=== PATIENT | male | born 1980 | race Caucasian/White ===

== ENCOUNTER 2021-06-04 08:34 | Outpatient (REF) | payer OTHER, SELFPAY ==
[2021-06-04 10:13] LABS: MANUAL DIFF FLAG NO
[2021-06-04 10:18] LABS: Basophils Percent Auto 0.6 % (0-2); Eosinophils Absolute Auto 0.1 X10*3/uL (0.0-0.4); Eosinophils Percent Auto 1.3 % (0-4); Hematocrit 40.7 % (42-52); Hemoglobin 13.6 g/dl (14.0-18.0); Imm Gran Abs Auto 0.01 X10*3/uL (0.00-0.03); Imm Gran Pct Auto 0.2 % (0.0-0.4); Lymphocytes Absolute Auto 1.5 X10*3/uL (1.2-4.9); Lymphocytes Percent Auto 32.8 % (20-40); Mean Corpuscular HGB Conc 33.4 g/dl (31.0-36.0); Mean Corpuscular Hemoglobin 29.2 pg (27.0-33.0); Mean Corpuscular Volume 87.3 fL (80-98); Mean Platelet Volume 9.6 fL (9.4-12.4); Monocytes Absolute Auto 0.4 X10*3/uL (0.1-1.2); Monocytes Percent Auto 9.2 % (2-11); Neutrophils Absolute Auto 2.6 X10*3/uL (2.0-8.3); Neutrophils Percent Auto 55.9 % (45-73); Platelet Count 216 X10*3/uL (160-400); Red Blood Count 4.66 X10*6/uL (4.60-5.80); Red Cell Distribution Width 12.7 % (11.0-16.0); White Blood Count 4.7 X10*3/uL (4.8-10.8)
[2021-06-04 10:31] LABS: Appearance Urine CLEAR; Color Urine YELLOW; Glucose Urine UA NEG (NEG); Leukocyte Esterase Urine NEG (NEG); Nitrite Urine NEG (NEG); Specific Gravity - Urine 1.025 (1.005-1.025); Urine Blood NEG (NEG); Urine Ketones NEG (NEG); Urine Protein NEG (NEG-TRACE)
[2021-06-04 10:38] LABS: Alanine Aminotransferase 28 U/L (0-40); Albumin Level 4.4 g/dL (3.5-5.0); Alkaline Phosphatase 53 U/L (39-117); Anion Gap 10 (12-20); Aspartate Amino Transferase 13 U/L (5-37); Blood Urea Nitrogen 16 mg/dL (9-16); Calcium 9.5 mg/dL (8.4-10.2); Carbon Dioxide 30 mmol/L (22-29); Chloride 104 mmol/L (96-108); Cholesterol 212 mg/dL; Estimated Glomerular Filt Rate > 60; Glucose Fasting 98 mg/dL (60-99); HDL Cholesterol 44 mg/dL; LDL Cholesterol Calculated 142 mg/dl; Lipase 17 U/L (8-78); Potassium 4.6 mmol/L (3.3-5.1); Sodium 139 mmol/L (135-145); Total Protein 6.6 g/dL (6.5-8.0); Triglycerides 132 mg/dL
== END 2021-06-04 08:35 | disposition home or self-care (01) ==
LOC: HO.10HDL 08:34
PROVIDERS: Visit Provider Internal Medicine
DX: E78.00 Pure hypercholesterolemia, unspecified (principal); R10.9 Unspecified abdominal pain
CPT/HCPCS: 36415; 80053; 80061; 81003; 83690; 85025

== ENCOUNTER 2021-06-15 15:07 | Outpatient (REF) | payer OTHER, SELFPAY ==
--- NOTE | ~2021-06-15 | XR_ITS ---
EXAMINATION: XR ELBOW, RIGHT CLINICAL INFORMATION: Pain COMPARISON: None TECHNIQUE: AP, lateral, and oblique views of the right elbow. FINDINGS: The bones and soft tissues are normal. No fracture or joint effusion. Alignment is anatomic. Joint spaces are maintained. XR/XR elbow RT min 3V IMPRESSION: Normal right elbow.
== END 2021-06-15 15:08 | disposition home or self-care (01) ==
LOC: HO.XRAY 15:07
PROVIDERS: PCP Internal Medicine; Visit Provider Internal Medicine
DX: M25.521 Pain in right elbow (principal); Z91.81 History of falling
CPT/HCPCS: 73080

== ENCOUNTER 2021-11-20 07:58 | Outpatient (REF) | payer OTHER, SELFPAY ==
[2021-11-20 09:00] LABS: Cholesterol 201 mg/dL; HDL Cholesterol 39 mg/dL; LDL Cholesterol Calculated 132 mg/dl; Triglycerides 150 mg/dL
== END 2021-11-20 07:59 | disposition home or self-care (01) ==
LOC: HO.LAB 07:58
PROVIDERS: PCP Internal Medicine; Visit Provider Internal Medicine
DX: E78.00 Pure hypercholesterolemia, unspecified (principal)
CPT/HCPCS: 36415; 80061

== ENCOUNTER 2023-10-06 06:42 | Outpatient (REF) | payer OTHER, SELFPAY ==
[2023-10-06 06:57] LABS: MANUAL DIFF FLAG NO
[2023-10-06 07:08] LABS: Basophils Percent Auto 0.8 % (0-2); Eosinophils Absolute Auto 0.1 X10*3/uL (0.0-0.4); Eosinophils Percent Auto 2.7 % (0-4); Hemoglobin 13.8 g/dl (14.0-18.0); Imm Gran Abs Auto 0.01 X10*3/uL (0.00-0.03); Imm Gran Pct Auto 0.2 % (0.0-0.4); Lymphocytes Absolute Auto 2.1 X10*3/uL (1.2-4.9); Lymphocytes Percent Auto 40.7 % (20-40); Mean Corpuscular HGB Conc 33.7 g/dl (31.0-36.0); Mean Corpuscular Hemoglobin 29.2 pg (27.0-33.0); Mean Corpuscular Volume 86.9 fL (80.0-98.0); Mean Platelet Volume 9.3 fL (9.4-12.4); Monocytes Absolute Auto 0.4 X10*3/uL (0.1-1.2); Monocytes Percent Auto 7.7 % (2-11); Neutrophils Absolute Auto 2.5 x10*3/uL (2.0-8.3); Neutrophils Percent Auto 47.9 % (45-73); Platelet Count 224 X10*3/uL (160-400); Red Blood Count 4.72 X10*6/uL (4.60-5.80); Red Cell Distribution Width 12.4 % (11.0-16.0); White Blood Count 5.2 X10*3/uL (4.8-10.8)
[2023-10-06 07:19] LABS: Alanine Aminotransferase 24 U/L (0-40); Albumin Level 4.1 g/dL (3.5-5.0); Alkaline Phosphatase 57 U/L (39-117); Anion Gap 9 (12-20); Aspartate Amino Transferase 14 U/L (5-37); Bilirubin Total 0.3 mg/dL (0.0-1.0); Blood Urea Nitrogen 14 mg/dL (9-16); C Reactive Protein < 0.10 mg/dL (< or = 0.50); Carbon Dioxide 28 mmol/L (22-29); Chloride 109 mmol/L (96-108); Cholesterol 185 mg/dL (<200); Estimated Glomerular Filt Rate > 60; Glucose Fasting 104 mg/dL (60-99); HDL Cholesterol 40 mg/dL (>40); LDL Cholesterol Calculated 121 mg/dL (<100); Potassium 4.3 mmol/L (3.3-5.1); Sodium 142 mmol/L (135-145); Total Protein 6.7 g/dL (6.5-8.0); Triglycerides 123 mg/dL (<150)
[2023-10-06 07:53] LABS: Erythrocyte Sedimentation Rate 4 MM/HR (0-15)
== END 2023-10-06 06:43 | disposition home or self-care (01) ==
LOC: HO.LAB 06:42
PROVIDERS: PCP Internal Medicine; Visit Provider Internal Medicine
DX: R42 Dizziness and giddiness (principal); E78.00 Pure hypercholesterolemia, unspecified
CPT/HCPCS: 36415; 80053; 80061; 85025; 85652; 86140

== ENCOUNTER 2024-12-12 16:02 | Outpatient (AMB) | payer OTHER, SELFPAY ==
--- NOTE | 2024-12-12 16:18 | A.OFFPC_ITS ---
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 Pain in plantar right foot at distal foot, base of the toes. Hurts intermittently through the day, at night, especially in the morning during first few steps. No pain in the heel Patient requests referral to urology for consideration of vasectomy ROS see HPI PHYSICAL EXAM: GENERAL: Alert and oriented x 3. NAD EYES: EOMI. Anicteric. HENT: Moist mucous membranes. No scleral icterus. No cervical lymphadenopathy. LUNGS: Clear to auscultation bilaterally. CARDIOVASCULAR: Regular rate and rhythm. No murmur. No JVD. ABDOMEN: Soft, non-tender +bs EXTREMITIES: No visible gross changes right foot, from SKIN: No rashes or lesions. Warm. NEUROLOGIC: No focal neurological deficits. CN II-XII grossly intact PSYCHIATRIC: Cooperative. Appropriate mood and affect [facility] Family History Mother No problems noted. Father No problems noted. Social History Housing: House Patient Tobacco Use Status: Never used Tobacco e-Cigarette/Vaping Use: Never Used service: No Current occupational status: employed Cognitive needs: No Hearing needs: No Vision needs: No Questionnaire PHQ-9 Over the last 2 weeks, how often have you been bothered by any of the following problems? 1. Little interest or pleasure in doing things: not at all 2. Feeling down, depressed, or hopeless: not at all 3. Trouble falling or staying asleep, or sleeping too much: not at all 4. Feeling tired or having little energy: not at all 5. Poor appetite or overeating: not at all 6. Feeling bad about yourself - or that you are a failure or have let yourself or your family down: not at all 7. Trouble concentrating on things, such as reading the newspaper or watching television: not at all 8. Moving or speaking so slowly that other people could have noticed. Or the opposite - being so fidgety or restless that you have been moving around a lot more than usual: not at all 9. Thoughts that you would be better off or of hurting yourself in some way: not at all Total score: 0 Depression Screening Interpretation: Negative Depression Screening Done: Yes 44127 - PHQ-9 Billing: Yes Source: Developed by Drs. George Crandall, Kayla Ac, Matt Cho and colleagues, with an educational óscar from [employer]. Thrive Questionnaire Date Thrive assessed: 12/12/24 I am a: Patient Within the past 12 months, did the food you bought not last and you didn't have the money to get more?: Never true Within the past 12 months, did you worry whether your food would run out before you got money to buy more?: Never true Do you have trouble paying for medicines?: No Do you have trouble getting transportation to medical appointments?: No Do you have trouble paying your heating and electricity bill?: No Do you have trouble taking care of your child, family member or friend?: No Do you have trouble with day-to-day activities such as bathing, preparing meals, shopping, managing finances, etc.?: No Are you currently unemployed and looking for a job?: No Are you interested in more education?: No THRIVE Score: 0 AUDIT C Alcohol Use Questionnaire (AUDIT-C) 1. How often do you have a drink containing alcohol?: Monthly or less 2. How many drinks containing alcohol do you have on a typical day when you are drinking?: 1 or 2 3. How often do you have six or more drinks on one occasion?: Less than monthly Total Score: 2 IRENE-7 AMB Questionnaire IRENE-7 Date IRENE - 7 assessed: 12/12/24 Feeling nervous, anxious, or on edge: 0 = Not at all Not being able to stop or control worryin = Not at all Worrying too much about different things: 0 = Not at all Trouble relaxin = Not at all Being so restless that it is hard to sit still: 0 = Not at all Becoming easily annoyed or irritable: 0 = Not at all Feeling afraid as if something awful might happen: 0 = Not at all Total IRENE-7 score (0-4 normal; 5-9 mild; 10-14 moderate; 15-21 severe): 0 Source: Developed by Drs. George Crandall, Kayla Ac, Matt Cho and colleagues, with an educational óscar from [employer]. Physical exam (Primary Care) Vital Signs: Last Vital Signs Temp 97.5 F 12/12/24 16:29 Pulse 86 12/12/24 16:29 BP 120/74 12/12/24 16:29 Pulse Ox 98 12/12/24 16:29 Oxygen Delivery Method Room Air 12/12/24 16:29 BMI result Body Mass Index 28.7 Tobacco/Smoking Status: Tobacco use Status Tobacco use date assessed 12/12/24 12/12/24 16:23 Patient Tobacco Use Status Never used Tobacco 12/12/24 16:23 e-Cigarette/Vaping Use Never Used 12/12/24 16:23 PHQ-9: PHQ-9 Score PHQ-9: Total score 0 12/12/24 16:33 Depression Screening Interpretation: Negative Thrive Assessment: Date of Thrive Assessment Date Thrive assessed 12/12/24 12/12/24 16:23 Coding Level of Care Code New Pt Level 4 (07281) Diagnoses Right foot pain M79.671 Vasectomy evaluation Z30. Additional Codes PHQ-9 - 46642 - PHQ-9 Billing: Yes ([id number]) Assessment & Plan Assessment & Plan (1) Right foot pain: Code(s): M79.671 - Pain in right foot Category: Medical Plan: Right foot pain x one year Voltaren sent, emla at night Referral to orthopedics (2) Vasectomy evaluation: Code(s): Z30.09 - Encounter for other general counseling and advice on contraception Category: Medical Plan: referral to urology Orders: Orders Comprehensive Met. Panel 12/12/24 D64.9 - Anemia, unspecified, E78.5 - Hyperlipidemia, unspecified, R73.09 - Other abnormal glucose, Z13.228 - Encounter for screening for other metabolic disorders Lipid Panel 12/12/24 D64.9 - Anemia, unspecified, E78.5 - Hyperlipidemia, unspecified, R73.09 - Other abnormal glucose, Z13.228 - Encounter for screening for other metabolic disorders Hemoglobin A1c 12/12/24 D64.9 - Anemia, unspecified, E78.5 - Hyperlipidemia, unspecified, R73.09 - Other abnormal glucose, Z13.228 - Encounter for screening for other metabolic disorders Complete Blood Count Auto Diff 12/12/24 D64.9 - Anemia, unspecified, E78.5 - Hyperlipidemia, unspecified, R73.09 - Other abnormal glucose, Z13.228 - Encounter for screening for other metabolic disorders Referrals Orthopedics Referral M79.671 - Pain in right foot Urology Referral Z30.09 - Encounter for other general counseling and advice on contraception Medications: New diclofenac sodium 1% (Voltaren Arthritis Pain) apply to single knee, ankle, foot; for foot includes sole/toes/top of foot 4 grams topical QID 100 grams 3RF lidocaine-prilocaine 2.5-2.5 % 1 appl topical BID PRN 30 grams 3RF foot pain
[2024-12-12 16:29] VITALS: BP 120/74; PULSE 86; TEMP 36.4; O2SAT 98; BMI 28.7
== END 2024-12-12 16:51 | disposition home or self-care (01) ==
LOC: HO.HMCHD 16:03
PROVIDERS: PCP Internal Medicine; Visit Provider Internal Medicine
DX: M79.671 Pain in right foot (principal); Z30.09 Encounter for other general counseling and advice on contraception

== ENCOUNTER → 2024-12-12 16:02 | Outpatient (BNVA) | payer OTHER, SELFPAY | PROVIDERS: PCP Internal Medicine; Visit Provider Internal Medicine | DX: K21.9 Gastro-esophageal reflux disease without esophagitis (principal); M19.90 Unspecified osteoarthritis, unspecified site; M79.671 Pain in right foot; D64.9 Anemia, unspecified; E78.5 Hyperlipidemia, unspecified; R73.09 Other abnormal glucose; Z30.09 Encounter for other general counseling and advice on contraception | CPT/HCPCS: 96127; 99202 ==

== ENCOUNTER 2025-05-20 09:24 | Outpatient (AMB) | payer OTHER, SELFPAY ==
--- NOTE | 2025-05-20 09:27 | A.OFFPC_ITS ---
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 The patient reports that he previously requested referrals to urology and orthopedics; however, he did not receive a call for the urology appointment due to transitioning doctors and insurance changes. An x-ray for the foot was ordered but not completed. The patient reports tenderness on his foot interfering with daily activities, particularly in the morning, when he feels a sensation of his finger pulling down, leading to numbness and popping upon placing weight on the foot. These symptoms alleviate throughout the day but may exacerbate at night, depending on sleeping position. Additionally, a concern for blood work results historically suggested hypercholesterolemia, which the patient is keen on monitoring, along with other baseline blood markers. There is also an interest in having a re-evaluation of his LDL, which was previously 121 mg/dL, indicating potential risk but not extreme levels. Blood glucose from past labs returned slightly elevated, warranting monitoring. The patient does not report any significant nausea, vomiting, chest pain, shortness of breath, gastrointestinal issues, or other joint pain, apart from those previously mentioned. Reports a sporadic drinking habit and rare smoking, only when socially prompted. Medical History: - Hypercholesterolemia - Elevated blood glucose (potential hist ory of pre-diabetes) - Essential Hypertension Family History: - Grandmother from heart failure - Aunts with heart issues - Grandmother from lung cancer [facility] Family History Mother No problems noted. Father No problems noted. Social History Housing: House Patient Tobacco Use Status: Never used Tobacco Tobacco use type: Cigarette e-Cigarette/Vaping Use: Never Used service: No Current occupational status: employed Cognitive needs: No Hearing needs: No Vision needs: No Questionnaire Thrive Questionnaire Date Thrive assessed: 05/20/25 I am a: Patient What is your living situation today?: I have a steady place to live Within the past 12 months, did the food you bought not last and you didn't have the money to get more?: Never true Within the past 12 months, did you worry whether your food would run out before you got money to buy more?: Never true Do you have trouble paying for medicines?: No Do you have trouble getting transportation to medical appointments?: No Do you have trouble paying your heating and electricity bill?: No Do you have trouble taking care of your child, family member or friend?: No Do you have trouble with day-to-day activities such as bathing, preparing meals, shopping, managing finances, etc.?: No Are you currently unemployed and looking for a job?: No Are you interested in more education?: No THRIVE Score: 0 AUDIT C Alcohol Use Questionnaire (AUDIT-C) 1. How often do you have a drink containing alcohol?: Monthly or less 2. How many drinks containing alcohol do you have on a typical day when you are drinking?: 1 or 2 Total Score: 1 Score Reviewed/Action Taken: Yes IRENE-7 AMB Questionnaire IRENE-7 Date IRENE - 7 assessed: 12/12/24 Source: Developed by Drs. George Crandall, Kayla Ac, Matt Cho and colleagues, with an educational óscar from [employer] Review of Systems Const Details: - Cardiovascular: Denies chest pain, shortness of breath - Respiratory: Denies any related symptoms - Gastrointestinal: Denies nausea, vomiting, diarrhea - Musculoskeletal: Reports foot tenderness and relief from symptoms during the day - Neurological: Reports morning finger pulling sensation - Genitourinary: Denies symptoms - Psychiatric: Denies psychological symptoms - General: Denies weight gain or significant changes to general health Physical exam (Primary Care) Tobacco/Smoking Status: Tobacco use Status Tobacco use date assessed 12/12/24 05/20/25 09:28 Patient Tobacco Use Status Never used Tobacco 05/20/25 09:28 e-Cigarette/Vaping Use Never Used 05/20/25 09:28 Thrive Assessment: Date of Thrive Assessment Date Thrive assessed 12/12/24 05/20/25 09:28 Const Other: General: Alert and oriented, Well nourished, No acute distress. Eye: Pupils are equal, round and reactive to light, Intact accommodation, Extraocular movements are intact, Normal conjunctiva, Vision unchanged. HENT: Normocephalic, Atraumatic, Tympanic membranes are clear, Normal hearing, Oral mucosa is moist, No pharyngeal erythema, Ear canals patent. Respiratory: Lungs CTA bilaterally, No wheeze, Respirations are non-labored. Cardiovascular: Regular rate, Regular rhythm, S1 auscultated, S2 auscultated, No murmur, Good pulses equal in all extremities, Normal peripheral perfusion, No edema. Gastrointestinal: Soft, Non-tender, Non-distended, Normal bowel sounds, No organomegaly. Musculoskeletal: Normal range of motion, Normal strength, No tenderness, No swelling, No deformity, Normal gait. Integumentary: Warm, Dry, [place], Intact. Neurologic: Alert, Oriented, Normal sensory, Normal motor function, No focal defects, Cranial Nerves II-XII are grossly intact, Normal deep tendon reflexes. Psychiatric: Cooperative, Appropriate mood & affect, Normal judgment. Coding Level of Care Code Est Pt Level 4 (16687) Diagnoses Hyperlipidemia E78.5 Right foot pain M79.671 Vasectomy evaluation Z30. Assessment & Plan Assessment & Plan (1) Hyperlipidemia: Comment: - Perform laboratory tests to evaluate cholesterol levels. - Lifestyle modifications recommended for cholesterol management. - Consider future pharmacological treatments if lifestyle modifications don't suffice. Code(s): E78.5 - Hyperlipidemia, unspecified Category: Medical Plan: - Dietery modifications - Order Lipid Panel (2) Right foot pain: Comment: - Reorder foot x-ray. - Recommend referral to orthopedics for comprehensive evaluation. Code(s): M79.671 - Pain in right foot Category: Medical (3) Vasectomy evaluation: Comment: - Referred to Urology Code(s): Z30.09 - Encounter for other general counseling and advice on contraception Category: Medical Plan Hypertension: - Encourage lifestyle changes to manage blood pressure. Monitor readings. I discussed with the patient the need to follow up with pending referrals, with an emphasis on continuing with lifestyle modifications to help manage hypertension and hypercholesterolemia. The necessity of retrieving foot x-rays was reinforced, as past attempts have not been completed. The patient was informed about the blood work panel which will give a baseline at this stage and an agreed-upon follow-up was suggested to review those results. Vaccine titers were discussed due to lack of documentation needed for work purposes. The patient was advised to maintain an active lifestyle, as inactivity contributes to blood pressure issues. We discussed potential needs for pharmacological intervention based on future test results, and anticipatory guidance for conditions with increased risk due to family history. I outlined potential next steps if laboratory values suggest further interventions are necessary. Orders: Orders Complete Blood Count Auto Diff Today E78.5 - Hyperlipidemia, unspecified Hemoglobin A1c Today E78.5 - Hyperlipidemia, unspecified Hepatitis A,B,C Profile Today E78.5 - Hyperlipidemia, unspecified TSH reflex Free T4 Today E78.5 - Hyperlipidemia, unspecified Comprehensive Met. Panel Today E78.5 - Hyperlipidemia, unspecified HIV Ab/Ag Today E78.5 - Hyperlipidemia, unspecified Lipid Panel Today E78.5 - Hyperlipidemia, unspecified Syphilis Screen Today E78.5 - Hyperlipidemia, unspecified Vitamin D 25-OH Total Today E78.5 - Hyperlipidemia, unspecified XR foot RT min 3V Today M79.671 - Pain in right foot MMR IgG Measles Mumps Rubella Today E78.5 - Hyperlipidemia, unspecified Referrals Orthopedics Referral M79.671 - Pain in right foot Urology Referral Z30.09 - Encounter for other general counseling and advice on contraception Scribe Plan - Not visible on output: - Follow up on referrals with insurance - Follow through with the lab work ordered in the conversation - Make lifestyle changes to help manage blood pressure and cholesterol - Attend the follow-up appointment to discuss lab results, especially for blood glucose and cholesterol levels - Adhere to a healthier diet low in salt and increased physical activity - Schedule an appointment next week for the vaccine titer check - Continue monitoring any changes in symptoms, especially foot and finger pain - Avoid high sodium foods and reduce alcohol consumption - Return to the gym for consistent exercise
[2025-05-20 09:41] VITALS: BP 142/64; PULSE 8; RESP 16; TEMP 36.4; O2SAT 97; BMI 28.8
== END 2025-05-20 09:57 | disposition home or self-care (01) ==
PROVIDERS: PCP Student in an Organized Health Care Education/Training Program; Visit Provider Student in an Organized Health Care Education/Training Program
DX: E78.5 Hyperlipidemia, unspecified (principal); M79.671 Pain in right foot; Z30.09 Encounter for other general counseling and advice on contraception

== ENCOUNTER → 2025-05-20 09:24 | Outpatient (BNVA) | payer OTHER, SELFPAY | PROVIDERS: PCP Internal Medicine; Visit Provider Student in an Organized Health Care Education/Training Program | DX: E78.5 Hyperlipidemia, unspecified (principal); M79.671 Pain in right foot; I10 Essential (primary) hypertension; Z30.09 Encounter for other general counseling and advice on contraception | CPT/HCPCS: 99212 ==

== ENCOUNTER 2025-05-22 08:19 | Outpatient (REF) | payer OTHER, SELFPAY ==
[2025-05-22 10:36] LABS: MANUAL DIFF FLAG NO
[2025-05-22 10:40] LABS: Hematocrit 41.7 % (42.0-52.0); Hemoglobin 14.0 g/dl (14.0-18.0); Imm Gran Abs Auto 0.02 X10*3/uL (0.00-0.03); Imm Gran Pct Auto 0.4 % (0.0-0.4); Lymphocytes Absolute Auto 2.1 X10*3/uL (1.2-4.9); Mean Corpuscular HGB Conc 33.6 g/dl (31.0-36.0); Mean Corpuscular Hemoglobin 29.0 pg (27.0-33.0); Mean Corpuscular Volume 86.5 fL (80.0-98.0); NRBC Abs Auto 0.000 X10*3/uL (0.0-0.012); NRBC Pct Auto 0.0 /100WBC (0.0-0.2); Platelet Count 215 X10*3/uL (160-400); Red Blood Count 4.82 X10*6/uL (4.60-5.80); White Blood Count 5.5 X10*3/uL (4.8-10.8)
[2025-05-22 10:51] LABS: Hemoglobin A1C 142.9366 umol/L; Total Hemoglobin (HGBA1C) 3616.8152 umol/L
[2025-05-22 11:13] LABS: Alanine Aminotransferase 34 U/L (0-40); Albumin Level 4.7 g/dL (3.5-5.0); Alkaline Phosphatase 54 U/L (39-117); Anion Gap 11 (12-20); Aspartate Amino Transferase 22 U/L (5-37); Blood Urea Nitrogen 18 mg/dL (9-16); Calcium 9.3 mg/dL (8.4-10.2); Carbon Dioxide 29 mmol/L (22-29); Chloride 105 mmol/L (96-108); Cholesterol 219 mg/dL (<200); Estimated Glomerular Filt Rate > 60; HDL Cholesterol 40 mg/dL (>40); Potassium 4.1 mmol/L (3.3-5.1); Sodium 141 mmol/L (135-145); Total Protein 7.1 g/dL (6.5-8.0); Triglycerides 176 mg/dL (<150)
[2025-05-22 11:18] LABS: HBS Num1 5.53 mIU/mL (0-7.99); HBc Num1 0.04 S/CO (0.00-0.79); HBsAGNum1 0.36 S/CO (0.00-0.99); HIV Num 1 0.04 S/CO (0.00-0.99); Hepatitis A Antibody IgM 0.18 Index (0-0.79); Hepatitis B Surface Antigen Negative (Negative); ~HepC Num1 0.09 S/CO (0.00-0.79); ~Hepatitis A Antibody IgM Nonreactive (Nonreactive); ~Hepatitis B Surface Antibody NONREACTIVE (Nonreactive); ~Hepatitis C Antibody Nonreactive (Nonreactive)
[2025-05-22 11:19] LABS: Syphilis Screen Nonreactive (Nonreactive)
== END 2025-05-22 08:20 | disposition home or self-care (01) ==
LOC: HO.10HDL 08:19
PROVIDERS: Visit Provider Student in an Organized Health Care Education/Training Program
DX: Z11.3 Encounter for screening for infections with a predominantly sexual mode of transmission (principal); Z11.4 Encounter for screening for human immunodeficiency virus [HIV]; E78.5 Hyperlipidemia, unspecified; Z11.59 Encounter for screening for other viral diseases
CPT/HCPCS: 36415; 80053; 80061; 82306; 83036; 84443; 85025; 86704; 86706; 86709; 86780; 86803; 87340; 87389

== ENCOUNTER 2025-05-27 08:28 | Outpatient (REF) | payer OTHER, SELFPAY ==
[2025-05-28 19:52] LABS: Rubeola IgG (Measles) 38.20 AU/mL
== END 2025-05-27 08:29 | disposition home or self-care (01) ==
LOC: HO.10HDL 08:28
PROVIDERS: Visit Provider Student in an Organized Health Care Education/Training Program
DX: E78.5 Hyperlipidemia, unspecified (principal)
CPT/HCPCS: 36415; 86735; 86762; 86765

== ENCOUNTER 2025-06-02 06:01 | Outpatient (REF) | payer OTHER, SELFPAY ==
--- NOTE | ~2025-06-02 | XR_ITS ---
EXAMINATION: XR FOOT 3 OR MORE VIEWS RIGHT HISTORY: M79.671 - Pain in right foot COMPARISON: There are no prior studies available for comparison. FINDINGS: Three views of the right foot are submitted. Osseous mineralization is normal. There is no fracture or dislocation. The joint spaces are preserved. The soft tissues are unremarkable. XR/XR foot RT min 3V IMPRESSION: Unremarkable examination of the right foot. Electronically signed by: George Sky MD 06/02/2025 08:07 AM EDT
== END 2025-06-02 06:02 | disposition home or self-care (01) ==
LOC: HO.XRAY 06:01
PROVIDERS: PCP Student in an Organized Health Care Education/Training Program; Visit Provider Student in an Organized Health Care Education/Training Program
DX: M79.671 Pain in right foot (principal); M77.41 Metatarsalgia, right foot; G57.81 Other specified mononeuropathies of right lower limb
CPT/HCPCS: 73630

== ENCOUNTER → 2025-06-02 06:05 | Outpatient (BNV) | payer OTHER, SELFPAY | PROVIDERS: PCP Student in an Organized Health Care Education/Training Program; Visit Provider Radiology Diagnostic Radiology | DX: M79.671 Pain in right foot (principal) | CPT/HCPCS: 73630 ==

== ENCOUNTER 2025-06-02 10:45 | Outpatient (AMB) | payer OTHER, SELFPAY ==
--- NOTE | 2025-06-02 10:52 | A.OFFVIS_ITS ---
Vital Signs 3 06/02/25 10:55 Height 5 ft 10 in Weight 198 lb BMI 28.4 Intake Visit Reasons: New Pt- right foot pain Intake Note: Alexander is a 44 year old male who presents today as a new patient for an evaluation of his right foot pain. He mentions the pain has been going on for about 2 years with no injury to the foot. Pain is located on the ball of his foot between the 3rd and 4h toe. Patient reports pain in the morning after first step but pain gets slightly better throughout the day Allergies No Known Allergies Allergy (Verified 06/02/25 10:55) Medication List - Last Reconciled 06/02/25 by Crystal Wolf DPM diclofenac sodium 1% (Voltaren Arthritis Pain) 4 grams topical QID lidocaine-prilocaine 2.5-2.5 % 1 appl topical BID PRN HPI Comments Details: The patient is a 44-year-old male with a past medical history as seen below presenting with right foot pain and a sensation of popping in-between the toes. He states the pain has been going on for approximately 2 years and denies any inciting injuries. He states he experiences a burning pain to the 3rd interspace plantarly. He states he notices contracture and flexion of the 3rd and 4th toes with some difficulty extending and releasing the toes upon contracture. The pain is most pronounced upon waking and taking the first step in the morning, with occasional burning sensations at night. He denies any heel pain. The discomfort is localized to the ball of the foot, with no heel pain reported. The patient describes a burning pain sudha to a be sting, with occasional locking of the third and fourth toes. There is no pain upon manipulation of the toes, but a popping sensation is noted. The patient underwent an x-ray, which showed no significant abnormalities except for a posterior calcaneal bone spur. He denies any other pedal concerns. He denies any current nausea, vomiting, fever, or chills. 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 Father No problems noted. Social History Housing: House Patient Tobacco Use Status: Never used Tobacco Tobacco use type: Cigarette e-Cigarette/Vaping Use: Never Used service: No Current occupational status: employed Cognitive needs: No Hearing needs: No Vision needs: No Review of Systems Const Details: - Musculoskeletal: Reports right foot pain, popping sensation, burning pain, and occasional locking of 3rd and 4th toes. Denies heel pain. All systems reviewed & are unremarkable except as noted in HPI and below Physical Exam Vital Signs: BMI result Body Mass Index 28.4 Extrem Other: Right lower extremity focused physical exam: Derm: Skin supple and turgor within normal limits. No open lesions abrasions or wounds noted. No hyperkeratotic lesions noted. No clinical signs of infection noted. Vascular: DP/PT pulses palpable. Capillary refill time less than 3 seconds. Temperature gradient warm to warm. Pedal hair present. No varicosities noted. No edema noted. Neuro: Protective sensation is grossly intact. Musculoskeletal: Squeeze test positive between third and fourth toes which elicited a pop sensation. Mild pain on palpation to the plantar aspect of the 3rd interspace in the area of the ball of the foot. No pain with range of motion of the forefoot. Range of motion of the hindfoot and ankle within normal limits. Mild crepitus noted to the 3rd interspace. Mildly antalgic gait unassisted. Ankle/foot/toe images: 2 1. Results Reviewed Results Reviewed: Ordered right foot MRI to be performed prior to next visit. Podiatry read of Right foot x-rays: Posterior calcaneal spur noted. No splaying of metatarsals noted. No acute fractures or dislocations noted. FINDINGS: Three views of the right foot are submitted. Osseous mineralization is normal. There is no fracture or dislocation. The joint spaces are preserved. The soft tissues are unremarkable. IMPRESSION: Unremarkable examination of the right foot. Assessment & Plan Assessment & Plan (1) Right foot pain: Comment: - Reorder foot x-ray. - Recommend referral to orthopedics for comprehensive evaluation. 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 We also reviewed the x-ray findings, which showed a posterior calcaneal bone spur, and I explained that it is not currently problematic. Ordered a right foot MRI to be performed prior to the next visit. 1. Mtz's Neuroma The patient is experiencing symptoms consistent with Mtz's Neuroma, including burning pain and a popping sensation between the third and fourth toes. Initial management includes the use of metatarsal pads (provided patient with metatarsal pads) to alleviate pressure on the affected nerve. 2. Bone Spur A bone spur was identified on the x-ray, but it is not currently causing pain or requiring intervention. Advised patient to continue wearing supportive shoe gear and avoid barefoot walking. Discussed with the patient need for insoles. Advised patient to utilize toe socks at night to prevent toe squeezing/compression. Advised patient to take ibuprofen or Tylenol for pain management as needed. Patient is to return to the office in 2 weeks for further re-evaluation. 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
[2025-06-02 10:55] VITALS: BMI 28.4
== END 2025-06-02 11:24 | disposition home or self-care (01) ==
LOC: HO.HPODS 10:46
PROVIDERS: PCP Student in an Organized Health Care Education/Training Program; Visit Provider Student in an Organized Health Care Education/Training Program
DX: M79.671 Pain in right foot (principal); G57.81 Other specified mononeuropathies of right lower limb; M77.41 Metatarsalgia, right foot
CPT/HCPCS: 99204

== ENCOUNTER 2025-06-17 08:28 | Outpatient (REF) | payer OTHER, SELFPAY ==
--- NOTE | ~2025-06-17 | MR_ITS ---
EXAMINATION: MR FOOT WITHOUT AND WITH CONTRAST, RIGHT CLINICAL INFORMATION: Foot numbness plantar to the third and fourth digits, popping, intermittent pain, feels like a lump in the region walking, chronic COMPARISON: X-ray 06/02/2025 TECHNIQUE: MRI of the right foot was performed before and after the intravenous administration of 9 mL Gadavist on a high-field scanner. FINDINGS: Lisfranc ligament: Intact Soft tissues/Mtz's Neuroma: There is a mass in the third web space that measures 13 x 5 x 13 mm (AP by transverse by CC). On T1 imaging and is isodense to skeletal muscle. On fluid multisequence, it is heterogeneously intermediate signal. After contrast, it demonstrates mild enhancement and is most consistent with Mtz's neuroma. There is a small amount of fluid in the adjacent intermetatarsal bursa. There is no muscle edema, atrophy, or fatty streaking. Metatarsophalangeal (MTP) joint and sesamoids of the great toe: Joint capsular structures and plantar plate complex is intact. There is no joint effusion. Lesser MTP joints & Plantar plates: Joint capsular structures and plantar plate complex is intact. There is no joint effusion. Bones/Marrow: Bone marrow signal is physiologic. MR/MR foot RT wo/w con IMPRESSION: Suspected Mtz's neuroma in the third web space measuring 13 x 5 x13 mm. Electronically signed by: Denzel Thomas MD 06/17/2025 09:42 AM EDT
== END 2025-06-17 08:29 | disposition home or self-care (01) ==
LOC: HO.MRI 08:28
PROVIDERS: PCP Student in an Organized Health Care Education/Training Program; Visit Provider Student in an Organized Health Care Education/Training Program
DX: M79.671 Pain in right foot (principal); M77.41 Metatarsalgia, right foot; M86.9 Osteomyelitis, unspecified
CPT/HCPCS: 73720; A9585

== ENCOUNTER → 2025-06-17 08:31 | Outpatient (BNV) | payer OTHER, SELFPAY | PROVIDERS: PCP Student in an Organized Health Care Education/Training Program; Visit Provider Radiology Diagnostic Radiology | DX: M79.671 Pain in right foot (principal) | CPT/HCPCS: 73720 ==

== ENCOUNTER 2025-07-01 08:57 | Outpatient (AMB) | payer OTHER, SELFPAY ==
--- NOTE | 2025-07-01 09:04 | A.OFFVIS_ITS ---
Vital Signs 07/01/25 09:06 Height 5 ft 10 in Weight 198 lb BMI 28.4 Intake Visit Reasons: OV- right foot MRI review Intake Note: Alexander Is a 44 year old male who presents today for a follow up of his right foot for an MRI review. At his last visit he was given metatarsal pads to alleviate pressure on the affected nerve. Bone spur was identified but is asymptomatic and required no treatment. Patient report his foot since his last visit has remained the same however he feels the metatarsal pad has helped with his driving. MRI done at [facility] [place] 06[place]17[place]25 Allergies No Known Allergies Allergy (Verified 07/01/25 09:06) HPI Comments Details: The patient is a 44-year-old male presenting for follow-up for right foot metatarsalgia and Mtz's Neuroma. The patient reports numbness in the foot when driving for long periods and discomfort after standing or playing sports for extended durations. The symptoms include a popping sensation in the morning and discomfort at the end of the day, with no new sharp pain reported. The patient has been using the metatarsal pads, which have provided some relief, especially during driving. The patient has not been using Voltaren gel regularly. He denies any new inciting injuries. He denies any other pedal concerns. 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 Father No problems noted. Social History Housing: House Patient Tobacco Use Status: Never used Tobacco Tobacco use type: Cigarette e-Cigarette/Vaping Use: Never Used service: No Current occupational status: employed Cognitive needs: No Hearing needs: No Vision needs: No Review of Systems Const Details: - Musculoskeletal: Mtz's neuroma to the right foot. All systems reviewed & are unremarkable except as noted in HPI and below Physical Exam Vital Signs: BMI result Body Mass Index 28.4 Extrem Other: Right lower extremity focused physical exam: Derm: Skin supple and turgor within normal limits. No open lesions abrasions or wounds noted. No hyperkeratotic lesions noted. No clinical signs of infection noted. No ecchymosis or discoloration noted. Vascular: DP/PT pulses palpable. Capillary refill time less than 3 seconds. Temperature gradient warm to warm. Pedal hair present. No varicosities noted. No edema noted. Neuro: Protective sensation is grossly intact. Musculoskeletal: Squeeze test positive between third and fourth toes which elicited a popping sensation. Mild pain on palpation to the plantar aspect of the 3rd interspace in the area of the ball of the foot. No pain with range of motion of the forefoot. Range of motion of the hindfoot and ankle within normal limits. Mild crepitus noted to the 3rd interspace. Mildly antalgic gait u nassisted. No splaying of toes noted. Office Procedures AMB Joint Injection/Aspir Pod Joint Injection/Aspiration Podiatry: Procedure: Right foot neuroma cortisone injection: Cleansed the right foot with an alcohol swab in the area of between the 3rd and 4th metatarsal heads where the neuroma is located. Next injected 1 cc of lidocaine plain, 1 cc of dexamethasone, and 0.5 cc of triamcinolone in the area of the neuroma with no incidents. A band-aid was applied to the area. Provided patient with after care instructions. 80097 RT - Mtz's Neuroma Injection RT Procedure code (CPT) selection complete Office Meds triamcinolone acetonide 40 mg/mL suspension for injection Performing Provider: Crystal Wolf DPM Performing Location: [facility] Administered by: Crystal Wolf DPM on 07/01/25 09:31 Dose Route Admin Location Dispensed Lot Number Expiration Date [facility] It Coordinator 20 mg intra-articular 1 mL [id number] [employer]N [employer] Total Dispensed Waste 1 mL 50 % dexamethasone sodium phosphate 4 mg/mL injection solution Performing Provider: Crystal Wolf DPM Performing Location: [facility] Administered by: Crystal Wolf DPM on 07/01/25 09:31 Dose Route Admin Location Dispensed Lot Number Expiration Date [facility] It Coordinator 4 mg intra-articular 1 mL [id number] MYL AN INSTITUTI Total Dispensed Waste 1 mL 0 % lidocaine HCl 10 mg/mL (1 %) injection solution Performing Provider: Crystal Wolf DPM Performing Location: [facility] Administered by: Crystal Wolf DPM on 07/01/25 09:31 Dose Route Admin Location Dispensed Lot Number Expiration Date [facility] It Coordinator 1 mL intra-articular 1 mL [id number] Total Dispensed Waste 1 mL 0 % Results Reviewed Results Reviewed: Podiatry Read of right foot MRI: Mtz's neuroma noted to the interdigital space between the 3rd and 4th metatarsal heads. No other gross abnormalities noted. Right foot MRI (06/17/25): FINDINGS: Lisfranc ligament: Intact Soft tissues/Mtz's Neuroma: There is a mass in the third web space that measures 13 x 5 x 13 mm (AP by transverse by CC). On T1 imaging and is isodense to skeletal muscle. On fluid multisequence, it is heterogeneously intermediate signal. After contrast, it demonstrates mild enhancement and is most consistent with Mtz's neuroma. There is a small amount of fluid in the adjacent intermetatarsal bursa. There is no muscle edema, atrophy, or fatty streaking. Metatarsophalangeal (MTP) joint and sesamoids of the great toe: Joint capsular structures and plantar plate complex is intact. There is no joint effusion. Lesser MTP joints & Plantar plates: Joint capsular structures and plantar plate complex is intact. There is no joint effusion. Bones/Marrow: Bone marrow signal is physiologic. IMPRESSION: Suspected Mtz's neuroma in the third web space measuring 13 x 5 x13 mm. Podiatry read of Right foot x-rays: Posterior calcaneal spur noted. No splaying of metatarsals noted. No acute fractures or dislocations noted. FINDINGS: Three views of the right foot are submitted. Osseous mineralization is normal. There is no fracture or dislocation. The joint spaces are preserved. The soft tissues are unremarkable. IMPRESSION: Unremarkable examination of the right foot. Assessment & Plan Assessment & Plan (1) Metatarsalgia, right foot: Code(s): M77.41 - Metatarsalgia, right foot Category: Medical (2) Right foot pain: Comment: - Reorder foot x-ray. - Recommend referral to orthopedics for comprehensive evaluation. 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 I discussed with the patient that the MRI confirmed a neuroma between the third and fourth toes of the right foot, which is causing the symptoms. We reviewed treatment options, including the use of metatarsal pads, cortisone injections, and the potential for surgical removal if conservative measures fail. I explained the risks and benefits of cortisone injections, including the need to limit them to three times a year to prevent tissue damage. The patient consented to proceed with the injection and was advised to avoid strenuous activities for a few days post-injection. - Administered a cortsone injection to reduce the size of the neuroma and alleviate symptoms. - Advised the patient to continue using metatarsal pads to relieve pressure on the affected area. Provided patient with metatarsal pads. - Advised patient to continue wearing supportive shoe gear and avoid barefoot walking. - Advised patient to wear inserts/insoles. - Advised patient to utilize toe socks at night to prevent toe squeezing/compression. - Advised patient to use Voltaren gel prn pain. - Discussed the possibility of surgical intervention if symptoms persist despite conservative management. RTC in 1 month for re-evaluation of symptoms. 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
[2025-07-01 09:06] VITALS: BMI 28.4
== END 2025-07-01 09:35 | disposition home or self-care (01) ==
LOC: HO.HPODS 08:58
PROVIDERS: PCP Student in an Organized Health Care Education/Training Program; Visit Provider Student in an Organized Health Care Education/Training Program
DX: M77.41 Metatarsalgia, right foot (principal); M79.671 Pain in right foot; G57.81 Other specified mononeuropathies of right lower limb
CPT/HCPCS: 64455; 99213

== ENCOUNTER → 2025-07-01 08:57 | Outpatient (BNVA) | payer OTHER, SELFPAY | PROVIDERS: PCP Student in an Organized Health Care Education/Training Program; Visit Provider Student in an Organized Health Care Education/Training Program | DX: G57.81 Other specified mononeuropathies of right lower limb (principal); M79.671 Pain in right foot; M77.41 Metatarsalgia, right foot | CPT/HCPCS: 64455; 99212; J1100; J2003; J3301 ==

== ENCOUNTER → 2025-08-12 08:11 | Outpatient (BNVA) | payer OTHER, SELFPAY | PROVIDERS: PCP Student in an Organized Health Care Education/Training Program; Visit Provider Nurse Practitioner Family | DX: R45.89 Other symptoms and signs involving emotional state (principal); Z30.09 Encounter for other general counseling and advice on contraception | CPT/HCPCS: 99202 ==

== ENCOUNTER 2025-08-12 09:46 | Outpatient (AMB) | payer OTHER, SELFPAY ==
--- NOTE | 2025-08-12 09:50 | A.OFFVIS_ITS ---
Intake Visit Reasons: Vasectomy Consult Intake Note: Patient is present for VASECTOMY CONSULT Urology Medication:NONE Antibiotic Allergy:NONE Blood Thinner:NONE Bumper And Painter Required: No Allergies No Known Allergies Allergy (Verified 08/12/25 11:20) Medication List - Last Reconciled 08/12/25 by LAKESHA Cuadra diclofenac sodium 1% (Voltaren Arthritis Pain) 4 grams topical QID lidocaine-prilocaine 2.5-2.5 % 1 appl topical BID PRN HPI Comments Details: Alexander is a very pleasant 45-year-old male patient of . He presents to the office today for - vasectomy evaluation Vasectomy evaluation The patient presents for vasectomy consultation.? 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 Does not recall exact procedural name. Patient education has been provided via [facility] video, via printed information, risks of failure, recovery time, bruising and potential pain syndrome have been stressed Discussion today focused on the presence of vasectomy and the risks, benefits and alternatives that are available. Vasectomy as intended as a permanent form of control. Printed information and literature was provided to the patient. Overall there is a one in 2500 failure rate. This can occur at any time after vasectomy. Risks were discussed highlighting hematoma, spermatocele, epididymal congestion, development of sperm antibodies, and development of chronic pain estimated between 1-5%. The procedure was reviewed in detail. Anatomical diagrams of the male genitalia were used to explain the location of the vas deferens. The vas deferens will be transected, the proximal end will be cauterized, a metal clip would be applied to separate the 2 vas deferens ends. It was explained the procedure will be done in the office and takes approximately 10-15 minutes. Less common problems that arise with vasectomy include hematoma, bleeding, allergic reaction to anesthetic, epididymal infection, epididymal congestion, scrotal discomfort, spermatic leak, spermatic granuloma and the possibility of antisperm antibodies. He understands these risks and wishes to proceed. Consent was signed at the office today. He also understands that it takes 12 weeks for sperm to fully clear the system. He will need to provide a semen sample at 12 weeks and if this is not clear a 2nd sample at 16 weeks. Medical clearance to stop using protection will only be provided if he satisfies published criteria for sperm clearance. 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 Father No problems noted. Social History Housing: House Patient Tobacco Use Status: Never used Tobacco Tobacco use type: Cigarette e-Cigarette/Vaping Use: Never Used service: No Current occupational status: employed Cognitive needs: No Hearing needs: No Vision needs: No Review of Systems Const All systems reviewed & are unremarkable except as noted in HPI and below Physical Exam Const General: cooperative, healthy appearing, comfortable, no acute distress, well developed, alert and awake Orientation/consciousness: patient oriented x3 Limitations: no limitations HEENT Head: Yes normal to inspection, Yes normocephalic and Yes atraumatic Ears: hearing grossly normal bilaterally Eyes General: appearance normal, both eyes and all related structures Neck Neck: Yes normal visual inspection and Yes trachea midline Chest Chest palpation & inspection: normal inspection of the chest Resp Effort & Inspection: normal respiratory effort and able to speak in complete sentences Cardio Rate: regular rate GI Inspection: Yes normal to inspection Other: Right-sided epididymal head cysts palpated during exam. General: Yes no CVA tenderness Back/Spine/Pelvis Back: no CVA tenderness Skin General skin exam: no rashes or lesions noted Neuro General: patient oriented x3 Extrem General: Yes normal to inspection Psych Appearance: grossly normal and well kempt Mental Status: mental status grossly normal Speech and movement: Normal speech and movement present and Clear speech present Affect: normal affect Attitude: cooperative Thought process: Normal thought process present Thought content: Normal thought content present Insight: Fair insight present (Psych) Judgement: Fair judgement present (Psych) Assessment & Plan Assessment & Plan (1) Anxiety about health: Code(s): R45.89 - Other symptoms and signs involving emotional state Category: Medical (2) Vasectomy evaluation: Comment: - Referred to Urology Code(s): Z30.09 - Encounter for other general counseling and advice on contraception Category: Medical Plan Vasectomy was discussed in detail; risks and benefits. We discussed semen analysis in office verses fellows kit Consent was obtained. All questions were answered. Prescriptions provided; we discussed importance of bringing medication to office day of procedure. Will obtain PSA; patient request; no family history of prostate cancer; no urinary issues. Will schedule for in office vasectomy. Follow-up per doctor's orders; or sooner with any issues, concerns, and or questions. Orders: Orders Prostate Specific Antigen Today Z12.5 - Encounter for screening for malignant neoplasm of prostate Medications: New diazepam (Valium) Bringing medication to office day of procedure 2 mg PO DAILY 2 tabs 0RF anxiety R45.89 - Other symptoms and signs involving emotional state tramadol Bringing medication to office day of procedure 50 mg PO Q8H PRN 7 tabs 0RF pain Patient Instructions: The patient had an opportunity to ask questions regarding the treatment plan. All questions were answered. Physical exam, labs, and imaging were discussed and reviewed in detail. As well as risks, benefits, and discussion of treatment choices. No major barriers to understanding were identified. The patient expressed understanding and agreement with the above treatment plan. The patient was made aware they should contact our office by phone for worsening of their current condition, the appearance of new symptoms, or with any questions or concerns. Compliance is encouraged with any medications and follow up testing that is ordered. It is a privilege to be allowed the opportunity to participate in? your urological care.? Again, if you have any questions or concerns If you have any questions or concerns please do not hesitate to contact me. The office is [phone]. This note is constructed using voice recognition software. While every effort has been made to ensure accuracy supervisor paint department errors may have been included. Yours sincerely, LAKESHA Cuadra Coding Level of Care Code New Pt Level 4 (86730) Diagnoses Anxiety about health R45.89 Vasectomy evaluation Z30.09
== END 2025-08-12 10:33 | disposition home or self-care (01) ==
LOC: HO.HUSH 09:47
PROVIDERS: PCP Student in an Organized Health Care Education/Training Program; Visit Provider Nurse Practitioner Family
DX: R45.89 Other symptoms and signs involving emotional state (principal); Z30.09 Encounter for other general counseling and advice on contraception
CPT/HCPCS: 99204